=== PATIENT | female | born 1965 | race Caucasian/White ===

== ENCOUNTER 2017-05-05 15:31 | Emergency (ER) | payer OTHER, BC ==
[2017-05-05] MEDS ORDERED: Diphtheria,Pertussis(Acell),Tetanus Vaccine 0.5 ML SDV IM ONE (15:55)
[2017-05-05] MEDS ORDERED: Lidocaine 1% 30 ML SDV INJECT ONE (15:55)
[2017-05-05] MEDS ORDERED: Bacitracin Oint 1 GM U/D Packet TOP ONE (15:55)
--- NOTE | 2017-05-29 08:09 | EDM.PDOC ---
Scribed by Catrina Duncan 05/29/17 0809 for Artur Jackson MD ED HPI GENERAL MEDICAL PROBLEM - General Chief Complaint: Laceration Stated Complaint: [id number] WC SLIPPED, CUT HAND ON GLASS Time Seen by Provider: 05/05/17 15:51 Source of Information: Reports: Patient, RN, RN Notes Reviewed History Limitations: Reports: No Limitations - History of Present Illness INITIAL COMMENTS - FREE TEXT/NARRATIVE: Patient presents with complaint of laceration to the right proximal palmar hand on a broke bottle. Denies any other injury. Date of last tetanus is greater than 10 years. Onset: Today Location: Reports: Upper Extremity, Right Quality: Reports: Ache Severity: Mild Improves with: Reports: None Worsens with: Reports: None Associated Symptoms: Reports: No Other Symptoms Right Generalized Pain Score (Numeric/FACES): 5 - Related Data Allergies Allergy/AdvReac Type Severity Reaction Status Date / Time Erythromycin Allergy Nausea and Uncoded 05/05/17 15:37 Vomiting Home Meds: Home Meds Lisinopril [Prinivil] 1 tab PO DAILY 06/16/13 [History] Simvastatin 1 tab PO BEDTIME 06/16/13 [History] Past Medical History HEENT History: Reports: Impaired Vision Cardiovascular History: Reports: High Cholesterol, Hypertension Social & Family History - Family History Family Medical History: Noncontributory - Tobacco Use Smoking Status *Q: Never Smoker Second Hand Smoke Exposure: No - Caffeine Use Caffeine Use: Reports: None - Alcohol Use Days Per Week of Alcohol Use: 3 Number of Drinks Per Day: 6 Total Drinks Per Week: 18 - Recreational Drug Use Recreational Drug Use: No ED ROS GENERAL - Review of Systems Review Of Systems: ROS reveals no pertinent complaints other than HPI. ED EXAM, SKIN/RASH Exam: See Below Exam Limited By: No Limitations General Appearance: Alert, WD/WN, No Apparent Distress Head: Atraumatic, Normocephalic Respiratory/Chest: No Respiratory Distress Extremities: Normal Range of Motion, Normal Capillary Refill, Other (0.6cm linear laceration at the midline right proximal palm to depth of subcutaneous fat. No active bleeding. No froeign body.) Neurological: Alert, Oriented, No Motor/Sensory Deficits ED SKIN PROCEDURES - Laceration/Wound Repair Right Anterior Proximal Hand Lac/Wound length In cm: 0.6 Appearance: Subcutaneous, Linear Distal NVT: Neuro & Vascular Intact, No Tendon Injury Anesthetic Type: Local Local Anesthesia - Lidocaine (Xylocaine): 1% Plain Local Anesthetic Volume: 5cc Skin Prep: Chlorhexidine (Hibiciens), Saline Saline Irrigation (cc's): 500 Exploration/Debridement/Repair: Wound Explored, In a Bloodless Field, Explored to Base, Minimal Debridement, Minimally Undermined Closed with: Sutures Suture Size: 3-0 # of Sutures: 3 Suture Type: Nylon, Interrupted Drain Placement: No Sterile Dressing Applied: Nurse Tetanus Status Addressed: Yes Complications: No Course - Vital Signs Last Recorded V/S: Last Vital Signs Temp 36.4 C 05/05/17 15:39 Pulse 80 05/05/17 15:39 Resp 16 05/05/17 15:39 BP 143/87 H 05/05/17 15:39 Pulse Ox 100 05/05/17 15:39 - Orders/Labs/Meds Meds: Medications Discontinued Medications Generic Name Dose Route Start Last Admin Trade Name Freq PRN Reason Stop Dose Admin Bacitracin 1 dose 05/05/17 15:55 05/05/17 16:02 Bacitracin Oint 1 Gm TOP 05/05/17 15:56 1 dose ONETIME ONE Administration Diphtheria/Tetanus/Acell Pertussis 0.5 ml 05/05/17 15:55 05/05/17 16:02 Adacel IM 05/05/17 15:56 0.5 ml .ONCE ONE Administration Lidocaine HCl 30 ml 05/05/17 15:55 05/05/17 16:02 Xylocaine-Mpf 1% INJECT 05/05/17 15:56 30 ml ONETIME ONE Administration Departure - Departure Time of Disposition: 16:28 Disposition: Home, Self-Care 01 Condition: Good Clinical Impression: Laceration of right hand Qualifiers: Encounter type: initial encounter Foreign body presence: without foreign body Qualified Code(s): S61.411A - Laceration without foreign body of right hand, initial encounter - Discharge Information Instructions: Laceration Care, Adult, [id number] Forms: ED Department Discharge Additional Instructions: Follow up in clinic for suture removal in 7 to 10 days. Return to ER if any signs of wound infection develop. May use over the counter Bacitracin zinc ointment twice a day to the laceration. I have read and agree with the documentation that has been completed regarding this visit. By signing this record, I attest that the documentation was completed in my physical presence and is an accurate record of the encounter.
== END 2017-05-05 16:31 | disposition home or self-care (01) ==
LOC: DL.ED 15:31
DX: S61.411A Laceration without foreign body of right hand, initial encounter (principal); I10 Essential (primary) hypertension; E78.00 Pure hypercholesterolemia, unspecified; Z88.1 Allergy status to other antibiotic agents; Z23 Encounter for immunization; W26.9XXA Contact with unspecified sharp object(s), initial encounter
CPT/HCPCS: 12001; 90471; 90715; 99283

== ENCOUNTER 2018-04-27 16:31 | Emergency (ER) | payer BC, OTHER ==
[2018-04-27] MEDS ORDERED: Sodium Chloride 0.9% 10 ML Syringe FLUSH PRN (17:03)
[2018-04-27] MEDS ORDERED: fentaNYL 100 MCG/2 ML SDV IVPUSH ONE (17:04)
[2018-04-27] MEDS ORDERED: Ondansetron 4 MG/2 ML SDV IV ONE (17:04)
--- NOTE | 2018-04-27 17:15 | EDM.PDOC ---
<Michelle Smith R - Last Filed: 04/27/18 19:03> ED HPI GENERAL MEDICAL PROBLEM - General Chief Complaint: Headache Stated Complaint: HEADACHE DEHORNER GOES DOWN THROUGH BACK Time Seen by Provider: 04/27/18 16:45 Source of Information: Reports: Patient, RN - History of Present Illness INITIAL COMMENTS - FREE TEXT/NARRATIVE: Patient presents to the ED with complaints of a headache. The headache is in the back of her head and radiates down her neck. She rates the pain 10/10. She had a slight headache yesterday with nausea, vomiting, and diarrhea. She stayed home from work today. Severe sharp headache came on suddenly at 1620. She states "this is the worst headache I have ever had." She is sensitive to light. She denies history of migraines or headaches. Denies any falls or trauma to the head. States she last took her lisinopril 3 days ago. Onset: Today, Sudden Onset Date: 04/27/18 Onset Time: 14:20 Location: Reports: Head Quality: Reports: Sharp Severity: Severe Improves with: Reports: None Worsens with: Reports: None Associated Symptoms: Reports: Headaches, Nausea/Vomiting - Related Data Allergies Allergy/AdvReac Type Severity Reaction Status Date / Time Erythromycin Allergy Nausea and Uncoded 04/27/18 16:39 Vomiting Home Meds: Home Meds Lisinopril [Prinivil] 1 tab PO DAILY 06/16/13 [History] Simvastatin 1 tab PO BEDTIME 06/16/13 [History] Past Medical History HEENT History: Reports: Impaired Vision Cardiovascular History: Reports: High Cholesterol, Hypertension Social & Family History - Family History Family Medical History: Noncontributory - Caffeine Use Caffeine Use: Reports: None - Living Situation & Occupation Living situation: Reports: ED ROS GENERAL - Review of Systems Review Of Systems: See Below Constitutional: Reports: No Symptoms HEENT: Reports: No Symptoms, Other (photophobia). Denies: Vision Change Respiratory: Reports: No Symptoms Cardiovascular: Reports: No Symptoms Endocrine: Reports: No Symptoms GI/Abdominal: Reports: Nausea, Vomiting : Reports: No Symptoms (pain 10/10) Musculoskeletal: Reports: No Symptoms Skin: Reports: No Symptoms Neurological: Reports: Headache Psychiatric: Reports: No Symptoms Hematologic/Lymphatic: Reports: No Symptoms Immunologic: Reports: No Symptoms - Physical Exam Exam Limited By: No Limitations General Appearance: Alert, WD/WN, Other (Patient curled side lying in bed with hands over face. Patient sensitive to lights.) Eye Exam: Bilateral Eye: Normal Fundi, Normal Inspection, PERRL Ears: Normal External Exam, Normal Canal, Hearing Grossly Normal, Other (TM obscured by cerumen) Nose: Normal Inspection, Normal Mucosa, No Blood Throat/Mouth: Normal Inspection, Normal Lips, Normal Teeth, Normal Gums, Normal Oropharynx, Normal Voice, No Airway Compromise Head Exam: Atraumatic, Normocephalic, Other (no bruising, swelling, or erythema) Neck: Normal Inspection, Supple, Non-Tender, Full Range of Motion Respiratory/Chest: No Respiratory Distress, Lungs Clear, Normal Breath Sounds, No Accessory Muscle Use, Chest Non-Tender Cardiovascular: Normal Peripheral Pulses, Regular Rate, Rhythm, No Edema, No Gallop, No JVD, No Murmur, No Rub GI/Abdominal: Normal Bowel Sounds, Soft, Non-Tender, No Organomegaly, No Distention, No Abnormal Bruit, No Mass (Female) Exam: Deferred Rectal (Female) Exam: Deferred Neuro Exam (Abbreviated): Alert, Oriented, CN II-XII Intact, Normal Cognition, No Motor/Sensory Deficits. No: Sensory/Motor Deficit Back Exam: Normal Inspection, Full Range of Motion, NT Extremities: Normal Inspection, Normal Range of Motion, Non-Tender, No Pedal Edema, Normal Capillary Refill Psychiatric: Normal Affect, Normal Mood Skin Exam: Warm, Dry, Intact, Normal Color, No Rash Course - Vital Signs Last Recorded V/S: Last Vital Signs Temp 37.1 C 04/27/18 18:51 Pulse 62 04/27/18 18:51 Resp 18 04/27/18 18:51 BP 144/82 H 04/27/18 18:51 Pulse Ox 97 04/27/18 18:51 - Orders/Labs/Meds Orders: Active Orders 24 hr Category Date Time Status EKG 12 Lead [EKG Documentation Completion] [RC] URGENT Care 04/27/18 17:02 Active Peripheral IV Care [RC] . DIRECTED Care 04/27/18 17:03 Active Peripheral IV Insertion Adult [OM.PC] Stat Oth 04/27/18 17:02 Ordered Labs: Laboratory Tests 04/27/18 04/27/1819 Range/Units 17:28 17:28 17:28 WBC 8.3 (5.0-10.0) 10^3/uL RBC 4.41 (4.2-5.4) 10^6/uL Hgb 13.6 (12.0-16.0) g/dL Hct 40.9 (37.0-47.0) % MCV 92.7 (80-100) fL MCH 30.8 (27.0-34.0) pg MCHC 33.3 (33.0-35.0) g/dL Plt Count 405 D (150-450) 10^3/uL Neut % (Auto) 63.7 (42.2-75.2) % Lymph % (Auto) 24.1 (20.5-50.1) % Price % (Auto) 10.9 H (2-8) % Eos % (Auto) 1.1 (1.0-3.0) % Baso % (Auto) 0.2 (0.0-1.0) % PT 9.4 (9.0-12.0) SEC INR 0.9 (0.9-1.2) Sodium 134 L (135-145) mmol/L Potassium 4.1 (3.6-5.0) mmol/L Chloride 103 (101-111) mmol/L Carbon Dioxide 24.0 (21.0-31.0) mmol/L Anion Gap 11.1 BUN 25 H (7-18) mg/dL Creatinine 0.6 (0.6-1.3) mg/dL Est Cr Clr Drug Dosing 104.23 mL/min Estimated GFR (MDRD) > 60 BUN/Creatinine Ratio 41.66 Glucose 123 H (74-105) mg/dL Calcium 8.7 (8.4-10.2) mg/dl Total Bilirubin 0.5 (0.2-1.0) mg/dL AST 25 (10-42) IU/L ALT 31 (10-60) IU/L Alkaline Phosphatase 74 (42-121) IU/L Total Protein 7.3 (6.7-8.2) g/dl Albumin 4.1 (3.2-5.5) g/dl Globulin 3.2 Albumin/Globulin Ratio 1.28 Meds: Medications Discontinued Medications Generic Name Dose Route Start Last Admin Trade Name Freq PRN Reason Stop Dose Admin Diphenhydramine HCl 25 mg 04/27/18 18:14 04/27/18 18:43 Benadryl IVPUSH 04/27/18 18:15 25 mg ONETIME ONE Administration Fentanyl 50 mcg 04/27/18 17:04 04/27/18 17:29 Sublimaze IVPUSH 04/27/18 17:05 50 mcg ONETIME ONE Administration Lactated Ringer's 1,000 mls @ 1,000 mls/hr 04/27/18 18:14 04/27/18 18:50 Ringers, Lactated IV 04/27/18 19:13 1,000 mls/hr .BOLUS ONE Administration Ketorolac Tromethamine 30 mg 04/27/18 18:14 04/27/18 18:48 Toradol IVPUSH 04/27/18 18:15 30 mg ONETIME ONE Administration Metoclopramide HCl 10 mg 04/27/18 18:14 04/27/18 18:45 Reglan IVPUSH 04/27/18 18:15 10 mg ONETIME ONE Administration Ondansetron HCl 4 mg 04/27/18 17:04 04/27/18 17:29 Zofran IV 04/27/18 17:05 4 mg ONETIME ONE Administration Sodium Chloride 10 ml 04/27/18 17:03 04/27/18 17:35 Saline Flush FLUSH 10 ml ASDIRECTED PRN Administration Keep Vein Open Departure - Departure Time of Disposition: 19:03 Disposition: Home, Self-Care 01 Condition: Fair Clinical Impression: Tension-type headache, Thunderclap headache - Discharge Information Instructions: Tension Headache, Adult, [id number] Forms: ED Department Discharge Additional Instructions: Tylenol, Ibuprofen or Excedrin for pain Rest and decrease stimulation Return to work tomorrow if symptoms are resolved. Return to ED if symptoms return and worsen Follow up with PCP if headache reoccurs or symptoms worsen - My Orders Last 24 Hours: My Active Orders 04/27/18 17:02 EKG 12 Lead [EKG Documentation Completion] [RC] URGENT Peripheral IV Insertion Adult [OM.PC] Stat 04/27/18 17:03 Peripheral IV Care [RC] . DIRECTED - Assessment/Plan Last 24 Hours: My Active Orders 04/27/18 17:02 EKG 12 Lead [EKG Documentation Completion] [RC] URGENT Peripheral IV Insertion Adult [OM.PC] Stat 04/27/18 17:03 Peripheral IV Care [] . DIRECTED Assessment:: tension headache Plan: Tylenol, Ibuprofen or Excedrin for pain Rest and decrease stimulation Return to work tomorrow if symptoms are resolved. Return to ED if symptoms return and worsen Follow up with PCP if headache reoccurs or symptoms worsen <Robert Olson - Last Filed: 04/28/18 08:00> ED ROS GENERAL - Review of Systems Neurological: Reports: Other (No change in the visual acuity. No diplopia). Denies: Confusion, Dizziness, Numbness, Paresthesia, Seizure, Syncope, Tingling , Tremors, Trouble Speaking, Difficulty Walking, Weakness, Gait Disturbance - Physical Exam Exam: See Below Head Exam: Other (no bruising, swelling, or erythema, no other signs of trauma no tenderness in the posterior aspect of the scalp with palpation. No nuchal rigidity.) EKG INTERPRETATION EKG Date: 04/27/18 Time: 17:17 Rhythm: NSR Rate (Beats/Min): 74 [place]: Normal P-Wave: Present QRS: Normal ST-T: Normal QT: Normal Course - Radiology Interpretation Free Text/Narrative:: CT scan of the head per radiology shows no acute intracranial abnormality. Due to the changes of the left ventricle that I saw when reviewing the CT scan extemporaneously by myself I spoke with the radiologist on-call directly by phone and the radiologist reports that this is a normal variant and unchanged from a previous MRI of the head. - Re-Assessments/Exams Free Text/Narrative Re-Assessment/Exam: 04/27/18 Due to the history of no migraines in the rather sudden onset of this the patient was brought to the CT scanner rather urgently. She initially was given Zofran for nausea and fentanyl for headache with minimal improvement. Her EKG is unremarkable. Once results of her CT scan were relayed to me by the radiologist she was given a typical migraine cocktail to include 1 L normal saline ketorolac 30 mg IV push , Benadryl 25 mg IV push. And Reglan 10 mg IV slow push. Laboratory evaluation is rather unremarkable. Patient rested comfortable following the above therapy. Her headache is much improved. I reviewed the CT scan as well as the other workup with the patient. I'm not finding any acute causes for acute headache. She is much improved following migraine therapy. We'll discharge her home if she has continued recurrence of her headaches migraines or problems should be reevaluated in a very short time. She was couple with this plan and her questions are answered. I personally performed or re-performed the physical examination and medical decision making. I have verified all student documentation or findings, including history, physical exam and/or medical decision making.
[2018-04-27 17:56] LABS: ANION GAP 11.1; CHLORIDE,CL 103 mmol/L (101-111); SODIUM,NA 134 mmol/L (135-145)
[2018-04-27] MEDS ORDERED: diphenhydrAMINE 50 MG/ML SDV IVPUSH ONE (18:14)
[2018-04-27] MEDS ORDERED: Metoclopramide 10 MG/2 ML SDV IVPUSH ONE (18:14)
[2018-04-27] MEDS ORDERED: Ketorolac 30 MG/ML SDV IVPUSH ONE (18:14)
[2018-04-27] MEDS ORDERED: Lactated Ringers 1,000 ML IV ONE (18:14)
== END 2018-04-27 19:21 | disposition home or self-care (01) ==
LOC: DL.ED 16:31
DX: G44.209 Tension-type headache, unspecified, not intractable (principal); G44.53 Primary thunderclap headache; I10 Essential (primary) hypertension; Z88.1 Allergy status to other antibiotic agents; Z79.899 Other long term (current) drug therapy
CPT/HCPCS: 36415; 70450; 80053; 85025; 85610; 93005; 96374; 96375; 99284; J1200; J1885; J2405; J2765; J3010; J7120

== ENCOUNTER 2018-04-29 15:28 | Emergency (ER) | payer BC ==
[2018-04-29] MEDS ORDERED: Sodium Chloride 0.9% 10 ML Syringe FLUSH PRN (15:42)
[2018-04-29] MEDS ORDERED: fentaNYL 100 MCG/2 ML SDV IVPUSH ONE (15:43)
[2018-04-29] MEDS ORDERED: Lactated Ringers 1,000 ML IV ONE (15:43)
[2018-04-29] MEDS ORDERED: diphenhydrAMINE 50 MG/ML SDV IVPUSH ONE ×2 (15:43→16:18)
[2018-04-29] MEDS ORDERED: Ketorolac 30 MG/ML SDV IVPUSH ONE (16:18)
[2018-04-29] MEDS ORDERED: Metoclopramide 10 MG/2 ML SDV IVPUSH ONE (16:18)
[2018-04-29 16:21] LABS: ANION GAP 15.5; CHLORIDE,CL 100 mmol/L (101-111); SODIUM,NA 133 mmol/L (135-145)
[2018-04-29] MEDS ORDERED: Dexamethasone 4 MG/ML SDV IVPUSH ONE (17:19)
--- NOTE | 2018-05-06 07:02 | EDM.PDOC ---
ED HPI GENERAL MEDICAL PROBLEM - General Chief Complaint: Headache Stated Complaint: SERVERE HEADACHES,CAME IN NOT THAT LONG AGO Time Seen by Provider: 04/29/18 16:01 Source of Information: Reports: Patient History Limitations: Reports: No Limitations - History of Present Illness INITIAL COMMENTS - FREE TEXT/NARRATIVE: She comes emergency Department today with complaints of a severe headache. Had seen this patient just 2 days ago with a new onset of severe almost thunderclap type headache. Her CT scan was normal. She was on was completely pain-free bedtime she left the ER. Today acutely about 1 hour prior to presentation patient was having a bowel movement when suddenly had return of severe sharp shooting Bailey tentorium headache. She complains of photophobia and phonophobia. No visual disturbances. No weakness dizziness lightheadedness. No chest pain or palpitations or shortness of breath. No fever no chills. No paresthesias of the upper lower extremity. No change in the functionality of her upper or lower extremity. No neck pain. She is not typically a headache or migraine type person. She did recently return from a trip from [place]. She denies any rash sores or lesions. No one else has been ill. Headache Pain Score (Numeric/FACES): 10 - Related Data Allergies Allergy/AdvReac Type Severity Reaction Status Date / Time Erythromycin Allergy Nausea and Uncoded 05/02/18 18:02 Vomiting Home Meds: Home Meds Lisinopril [Prinivil] 1 tab PO DAILY 06/16/13 [History] Simvastatin 1 tab PO BEDTIME 06/16/13 [History] Past Medical History HEENT History: Reports: Impaired Vision Cardiovascular History: Reports: High Cholesterol, Hypertension Social & Family History - Family History Family Medical History: Noncontributory - Tobacco Use Smoking Status *Q: Never Smoker - Caffeine Use Caffeine Use: Reports: None - Recreational Drug Use Recreational Drug Use: No - Living Situation & Occupation Living situation: Reports: ED ROS GENERAL - Review of Systems Review Of Systems: ROS reveals no pertinent complaints other than HPI. - Physical Exam Exam: See Below Exam Limited By: No Limitations General Appearance: Mild Distress (crying in pain. ) Eye Exam: Bilateral Eye: EOMI, Normal Inspection, PERRL Ears: Normal External Exam, Normal TMs Nose: Normal Inspection, Normal Mucosa, No Blood Throat/Mouth: Normal Inspection, Normal Lips, Normal Teeth, Normal Oropharynx Head Exam: Atraumatic, Normocephalic Neck: Normal Inspection, Supple, Non-Tender, Full Range of Motion Respiratory/Chest: No Respiratory Distress, Lungs Clear, Normal Breath Sounds, No Accessory Muscle Use, Chest Non-Tender Cardiovascular: Normal Peripheral Pulses, Regular Rate, Rhythm, No Edema GI/Abdominal: Normal Bowel Sounds, Soft, Non-Tender Neuro Exam (Abbreviated): Alert, Oriented, CN II-XII Intact, Normal Cognition, Normal Reflexes, No Motor/Sensory Deficits Back Exam: Normal Inspection Extremities: Normal Inspection, Normal Range of Motion, Normal Capillary Refill Psychiatric: Normal Affect, Normal Mood Skin Exam: Warm, Dry, Intact, Normal Color, No Rash Course - Vital Signs Last Recorded V/S: Last Vital Signs Temp 37.1 C 04/29/18 16:07 Pulse 70 04/29/18 16:07 Resp 14 04/29/18 16:07 BP 148/72 H 04/29/18 16:07 Pulse Ox 94 L 04/29/18 16:07 - Orders/Labs/Meds Labs: Laboratory Tests 04/29/18 04/29/18 04/29/18 Range/Units 15:39 15:39 15:39 WBC 13.0 H (5.0-10.0) 10^3/uL RBC 4.57 (4.2-5.4) 10^6/uL Hgb 14.1 (12.0-16.0) g/dL Hct 42.5 (37.0-47.0) % MCV 93.0 (80-100) fL MCH 30.9 (27.0-34.0) pg MCHC 33.2 (33.0-35.0) g/dL Plt Count 448 (150-450) 10^3/uL Neut % (Auto) 53.6 (42.2-75.2) % Lymph % (Auto) 35.4 (20.5-50.1) % Gordon % (Auto) 9.8 H (2-8) % Eos % (Auto) 0.9 L (1.0-3.0) % Baso % (Auto) 0.3 (0.0-1.0) % Sodium 133 L (135-145) mmol/L Potassium 3.5 L (3.6-5.0) mmol/L Chloride 100 L (101-111) mmol/L Carbon Dioxide 21.0 (21.0-31.0) mmol/L Anion Gap 15.5 BUN 15 (7-18) mg/dL Creatinine 0.5 L (0.6-1.3) mg/dL Est Cr Clr Drug Dosing 127.42 mL/min Estimated GFR (MDRD) > 60 BUN/Creatinine Ratio 30.00 Glucose 102 (74-105) mg/dL Calcium 9.1 (8.4-10.2) mg/dl Total Bilirubin 0.5 (0.2-1.0) mg/dL AST 26 (10-42) IU/L ALT 27 (10-60) IU/L Alkaline Phosphatase 77 (42-121) IU/L C-Reactive Protein 1.4 H (0.0-1.3) mg/dL Total Protein 7.8 (6.7-8.2) g/dl Albumin 4.6 (3.2-5.5) g/dl Globulin 3.2 Albumin/Globulin Ratio 1.44 TSH, Ultra Sensitive (0.45-5.33) uIu/mL Urine Color (YELLOW) Urine Appearance (CLEAR) Urine pH (5.0-9.0) Ur Specific [place] (1.005-1.030) Urine Protein (NEGATIVE) Urine Glucose (UA) (NEGATIVE) Urine Ketones (NEGATIVE) Urine Occult Blood (NEGATIVE) Urine Nitrite (NEGATIVE) Urine Bilirubin (NEGATIVE) Urine Urobilinogen (0.2-1.0) mg/dL Ur Leukocyte Esterase (NEGATIVE) Urine RBC /HPF Urine WBC (0-5/HPF) /HPF Ur Epithelial Cells /HPF Urine Bacteria (0-FEW/HPF) /HPF Urine Mucus /LPF Urine Opiates Screen (NEGATIVE) Ur Oxycodone Screen (NEGATIVE) Urine Methadone Screen (NEGATIVE) Ur Barbiturates Screen (NEGATIVE) U Tricyclic Antidepress (NEGATIVE) Ur Phencyclidine Scrn (NEGATIVE) Ur Amphetamine Screen (NEGATIVE) U Methamphetamines Scrn (NEGATIVE) Urine MDMA Screen (NEGATIVE) U Benzodiazepines Scrn (NEGATIVE) Urine Cocaine Screen (NEGATIVE) U Marijuana (THC) Screen (NEGATIVE) 04/29/18 04/29/18 04/29/18 Range/Units 15:39 17:12 17:12 WBC (5.0-10.0) 10^3/uL RBC (4.2-5.4) 10^6/uL Hgb (12.0-16.0) g/dL Hct (37.0-47.0) % MCV (80-100) fL MCH (27.0-34.0) pg MCHC (33.0-35.0) g/dL Plt Count (150-450) 10^3/uL Neut % (Auto) (42.2-75.2) % Lymph % (Auto) (20.5-50.1) % Gordon % (Auto) (2-8) % Eos % (Auto) (1.0-3.0) % Baso % (Auto) (0.0-1.0) % Sodium (135-145) mmol/L Potassium (3.6-5.0) mmol/L Chloride (101-111) mmol/L Carbon Dioxide (21.0-31.0) mmol/L Anion Gap BUN (7-18) mg/dL Creatinine (0.6-1.3) mg/dL Est Cr Clr Drug Dosing mL/min Estimated GFR (MDRD) BUN/Creatinine Ratio Glucose (74-105) mg/dL Calcium (8.4-10.2) mg/dl Total Bilirubin (0.2-1.0) mg/dL AST (10-42) IU/L ALT (10-60) IU/L Alkaline Phosphatase (42-121) IU/L C-Reactive Protein (0.0-1.3) mg/dL Total Protein (6.7-8.2) g/dl Albumin (3.2-5.5) g/dl Globulin Albumin/Globulin Ratio TSH, Ultra Sensitive 1.63 (0.45-5.33) uIu/mL Urine Color Yellow (YELLOW) Urine Appearance Clear (CLEAR) Urine pH 8.0 (5.0-9.0) Ur Specific [place] 1.015 (1.005-1.030) Urine Protein Negative (NEGATIVE) Urine Glucose (UA) Negative (NEGATIVE) Urine Ketones Negative (NEGATIVE) Urine Occult Blood Trace-intact H (NEGATIVE) Urine Nitrite Negative (NEGATIVE) Urine Bilirubin Negative (NEGATIVE) Urine Urobilinogen 0.2 (0.2-1.0) mg/dL Ur Leukocyte Esterase Trace H (NEGATIVE) Urine RBC Not seen /HPF Urine WBC 0-5 (0-5/HPF) /HPF Ur Epithelial Cells Rare /HPF Urine Bacteria Rare (0-FEW/HPF) /HPF Urine Mucus Not seen /LPF Urine Opiates Screen Negative (NEGATIVE) Ur Oxycodone Screen Negative (NEGATIVE) Urine Methadone Screen Negative (NEGATIVE) Ur Barbiturates Screen Negative (NEGATIVE) U Tricyclic Antidepress Negative (NEGATIVE) Ur Phencyclidine Scrn Negative (NEGATIVE) Ur Amphetamine Screen Negative (NEGATIVE) U Methamphetamines Scrn Negative (NEGATIVE) Urine MDMA Screen Negative (NEGATIVE) U Benzodiazepines Scrn Negative (NEGATIVE) Urine Cocaine Screen Negative (NEGATIVE) U Marijuana (THC) Screen Negative (NEGATIVE) Meds: Medications Discontinued Medications Generic Name Dose Route Start Last Admin Trade Name Freq PRN Reason Stop Dose Admin Dexamethasone 10 mg 04/29/18 17:19 04/29/18 17:26 Dexamethasone IVPUSH 04/29/18 17:20 10 mg ONETIME ONE Administration Diphenhydramine HCl 25 mg 04/29/18 15:43 04/29/18 15:52 Benadryl IVPUSH 04/29/18 15:44 25 mg ONETIME ONE Administration Diphenhydramine HCl 12.5 mg 04/29/18 16:18 04/29/18 16:28 Benadryl IVPUSH 04/29/18 16:19 12.5 mg ONETIME ONE Administration Fentanyl 50 mcg 04/29/18 15:43 04/29/18 15:51 Sublimaze IVPUSH 04/29/18 15:44 50 mcg ONETIME ONE Administration Lactated Ringer's 1,000 mls @ 1,000 mls/hr 04/29/18 15:43 04/29/18 15:52 Ringers, Lactated IV 04/29/18 16:42 1,000 mls/hr .BOLUS ONE Administration Ketorolac Tromethamine 30 mg 04/29/18 16:18 04/29/18 16:26 Toradol IVPUSH 04/29/18 16:19 30 mg ONETIME ONE Administration Metoclopramide HCl 10 mg 04/29/18 16:18 04/29/18 16:27 Reglan IVPUSH 04/29/18 16:19 10 mg ONETIME ONE Administration Sodium Chloride 10 ml 04/29/18 15:42 Saline Flush FLUSH ASDIRECTED PRN Keep Vein Open - Radiology Interpretation Free Text/Narrative:: CT of the head per radiology shows no acute findings or changes from the CT 2 days ago. - Re-Assessments/Exams Free Text/Narrative Re-Assessment/Exam: 04/29/18 Patient received IV hydration as well as pain medication to include Toradol Benadryl and Reglan. Also some fentanyl for pain. We are unable to complete the CTA of the head. CT of the head repeated shows no acute findings. With this rather new development of severe headaches and the lack of history and the thunderclap nature of this I called and spoke with the hospitalist in [place]. History of present illness ER findings concerns were relayed to him. He accepted the patient in transfer. The patient and the refused by ambulance. Risk and benefits were explained to them and they clearly understood these to include paralysis or other neurological compromise. They clearly understand these risks and will drive until she [place]. Patient was given dexamethasone prior to transfer. Departure - Departure Time of Disposition: 18:01 Disposition: DC/Tfer to Acute Hospital 02 Clinical Impression: Tension-type headache, Thunderclap headache - Discharge Information Referrals: PCP,None [Primary Care Provider] - Forms: ED Department Discharge - Assessment/Plan Assessment:: Tension-type thunderclap headache Plan: Transferred to [place]
== END 2018-04-29 17:56 ==
LOC: DL.ED 15:28
DX: G44.209 Tension-type headache, unspecified, not intractable (principal); G44.53 Primary thunderclap headache; E78.00 Pure hypercholesterolemia, unspecified; I10 Essential (primary) hypertension; Z88.1 Allergy status to other antibiotic agents; Z79.899 Other long term (current) drug therapy
CPT/HCPCS: 36415; 70450; 80053; 80305; 81001; 84443; 85025; 86140; 86618; 87040; 96361; 96374; 96375; 96376; 99285; J1100; J1200; J1885; J2765; J3010; J7120

== ENCOUNTER 2024-07-26 05:52 | Day surgery (SDC) | payer BC ==
[~2024-07-26 05:52] MED LIST: Propofol 200 MG/20 ML SDV ONE
[2024-07-26] MEDS: Lactated Ringers 1,000 ML IV SCH (06:28)
[2024-07-26] MEDS ORDERED: Propofol 200 MG/20 ML SDV ONE (08:15)
== END 2024-07-26 08:50 | disposition home or self-care (01) ==
LOC: DL.ENDO 05:52
PROVIDERS: ATTEND Internal Medicine Gastroenterology
DX: Z12.11 Encounter for screening for malignant neoplasm of colon (principal); K57.30 Diverticulosis of large intestine without perforation or abscess without bleeding; K21.9 Gastro-esophageal reflux disease without esophagitis; E78.5 Hyperlipidemia, unspecified; I10 Essential (primary) hypertension
CPT/HCPCS: 45378; J7120